=== PATIENT | female | born 1935 | race African-American/Black ===

== ENCOUNTER 2019-02-27 08:19 | Day surgery (SDC) | payer OTHER, MEDICARE ==
[2019-02-24 12:21] VITALS: BMI 24.6
[2019-02-27 11:19] VITALS: TEMP 97.7
[2019-02-27 12:35] VITALS: BP 132/89; PULSE 69
--- NOTE | 2019-02-28 10:59 | PATH ---
Surgical Pathology Report Patient Name: [facility]. Rec. #: [id number] /Age/Gender: 1935 (Age: 83) / F Account: [id number] Location: U-ENDOSCOPY Taken: 02/27/2019 Received: 02/27/2019 Reported: 02/28/2019 Physicians: Kasia Mackenzie M.D. Specimen(s) Received A: DUODENUM, SECOND PORTION AND BULB B: ANTRUM C: DESCENDING COLON POLYP D: RIGHT COLON POLYP Clinical History Weight loss, loss of appetite Postoperative diagnosis: Atrophic gastritis, hiatal hernia, GERD, colon polyps, diverticulosis Final Diagnosis A. DUODENUM, SECOND PORTION AND BULB, BIOPSY: DUODENAL MUCOSA WITH MILD TO MODERATE CHRONIC DUODENITIS. B. STOMACH, ANTRUM, BIOPSY: GASTRIC ANTRAL MUCOSA WITH MILD CHRONIC GASTRITIS. IMMUNOHISTOCHEMICAL STAIN FOR H. PYLORI IS NEGATIVE. C. DESCENDING COLON, POLYP, BIOPSY: TUBULAR ADENOMA. D. COLON POLYPS, RIGHT, POLYPECTOMY AND BIOPSY: TUBULAR ADENOMA(S). Electronically Signed Eleni Freed M.D. Gross Description A. Received in formalin, labeled "second portion and bulb of duodenum" are 4 hadley, irregular portions of soft tissue ranging from 0.1-0.4 cm. in greatest dimension. The specimens are submitted in toto in one cassette. B. Received in formalin, labeled "antrum biopsy" are 4 hadley, irregular portions of soft tissue ranging from 0.2-0.5 cm. in greatest dimension. The specimens are submitted in toto in one cassette. C. Received in formalin, labeled "descending colon polyp" is a hadley, irregular portion of soft tissue measuring 0.5 cm. in greatest dimension. The specimen is submitted in toto in one cassette. D. Received in formalin, labeled "right colon polyps" are 5 hadley, irregular portions of soft tissue ranging from 0.1-0.5 cm. in greatest dimension. The specimens are submitted in toto in one cassette. 02/27/201902/27/2019
== END 2019-02-27 12:28 | disposition home or self-care (01) ==
LOC: JASU-ENDO 08:19
PROVIDERS: ATTEND Internal Medicine Gastroenterology
PROC: 0DBM8ZX Excision of Descending Colon, Via Natural or Artificial Opening Endoscopic, Diagnostic (ICD-10-PCS; 2019-02-27)
PROC: 0DBK8ZX Excision of Ascending Colon, Via Natural or Artificial Opening Endoscopic, Diagnostic (ICD-10-PCS; 2019-02-27)
PROC: 0DB98ZX Excision of Duodenum, Via Natural or Artificial Opening Endoscopic, Diagnostic (ICD-10-PCS; 2019-02-27)
PROC: 0DB68ZX Excision of Stomach, Via Natural or Artificial Opening Endoscopic, Diagnostic (ICD-10-PCS; 2019-02-27)
PROC: 0DBK8ZX Excision of Ascending Colon, Via Natural or Artificial Opening Endoscopic, Diagnostic (ICD-10-PCS; principal; 2019-02-27 10:00)
DX: Z12.11 Encounter for screening for malignant neoplasm of colon (principal); R63.4 Abnormal weight loss; D12.2 Benign neoplasm of ascending colon; D12.4 Benign neoplasm of descending colon; K57.30 Diverticulosis of large intestine without perforation or abscess without bleeding; K64.8 Other hemorrhoids; K29.80 Duodenitis without bleeding; K29.50 Unspecified chronic gastritis without bleeding; K44.9 Diaphragmatic hernia without obstruction or gangrene; K21.9 Gastro-esophageal reflux disease without esophagitis; I10 Essential (primary) hypertension; E78.5 Hyperlipidemia, unspecified; E04.1 Nontoxic single thyroid nodule
CPT/HCPCS: 88305-TC; 88342-TC

== ENCOUNTER 2021-10-17 08:01 | Observation (INO) | payer OTHER ==
[2021-10-17] MEDS ORDERED: HYDROCORTISONE SOD SUCCINATE 100 MG/2 ML VIAL IVPUSH ONE (08:20)
[2021-10-17] MEDS ORDERED: FAMOTIDINE 20 MG/50 ML IVPB 20 MG/50 ML MG IVPB ONE ×2 (08:25→08:27)
[2021-10-17] MEDS ORDERED: ALBUTEROL SO4 2.5/IPRATROPIUM 0.5 INH SOL 3 ML VIAL.NEB. NEB ONE (08:27)
[2021-10-17] MEDS ORDERED: RAPID SEQUENCE INTUBATION KIT NR ONE (08:31)
[2021-10-17] MEDS ORDERED: TRANEXAMIC ACID 1000 MG/10 ML VIAL ONE ×2 (08:32→08:49)
[2021-10-17] MEDS ORDERED: TRANEXAMIC ACID 1000 MG/10 ML VIAL IVPUSH ONE ×3 (08:41→08:46)
[2021-10-17 09:00] LABS: BASO % 0.3 % (0-2.0); EOS % 3.6 % (0-4.5); HEMATOCRIT 41.4 % (32.4-45.2); HEMOGLOBIN 13.6 GM/dL (10.7-15.3); LYMPH % 45.2 % (8-40); MCH 30.5 pg (25.7-33.7); MCHC 32.9 g/dl (32.0-36.0); MEAN CELL VOLUME 92.7 fl (80-96); MEAN PLT VOLUME 7.8 fl (7.5-11.1); MONO % 7.7 % (3.8-10.2); NEUT % 43.2 % (42.8-82.8); PLATELET COUNT 276 10^3/uL (134-434); RBC 4.46 M/mm3 (3.60-5.2); RDW 13.3 % (11.6-15.6); WHITE BLOOD COUNT 7.9 K/mm3 (4.0-10.0)
[2021-10-17 09:15] LABS: ACTIVATED PTT 33.1 SECONDS (25.2-36.5); INR 0.99 (0.83-1.09); PROTHROMBIN TIME (PATIENT) 11.4 SEC (9.7-13.0)
[2021-10-17 09:25] LABS: ALBUMIN 4.2 g/dl (3.4-5.0); CALCIUM 9.8 mg/dL (8.5-10.1)
[2021-10-17 09:28] LABS: CREATININE 1.1 mg/dL (0.55-1.3)
[2021-10-17 09:30] LABS: BILIRUBIN,TOTAL 0.8 mg/dL (0.2-1); TOT PROT 8.2 g/dl (6.4-8.2)
[2021-10-17] MEDS ORDERED: MAG HYDROX/AL HYDROX/SIMETH 30 ML UNIT-DOSE CUP PO PRN (14:14)
[2021-10-17] MEDS ORDERED: PANTOPRAZOLE 40 MG TABLET PO SCH (14:30)
[2021-10-17] MEDS: VERAPAMIL HCL 240 MG E.R. TABLET PO SCH (15:41)
[2021-10-17] MEDS: HEPARIN NA (PORCINE) 5,000 UNITS/ML 1ML VIAL SQ SCH (21:46)
[2021-10-17] MEDS: ATORVASTATIN CA 20 MG TABLET (FP) PO SCH (21:46)
[2021-10-17 23:42] VITALS: BMI 24.8
[2021-10-18] MEDS: PANTOPRAZOLE 40 MG TABLET PO SCH (09:17)
[2021-10-18] MEDS: HEPARIN NA (PORCINE) 5,000 UNITS/ML 1ML VIAL SQ SCH ×2 (09:17→22:09)
[2021-10-18] MEDS ORDERED: DEXAMETHASONE SOD PHOSPHATE 10 MG/1 ML VIAL IVPUSH ONE (12:15)
[2021-10-18] MEDS: VERAPAMIL HCL 240 MG E.R. TABLET PO SCH (12:28)
[2021-10-18 18:39] VITALS: RESP 18
[2021-10-18] MEDS: ATORVASTATIN CA 20 MG TABLET (FP) PO SCH (22:09)
[2021-10-19 06:20] VITALS: BP 153/85; PULSE 64; TEMP 98.3
[2021-10-19] MEDS: VERAPAMIL HCL 240 MG E.R. TABLET PO SCH (09:58)
[2021-10-19] MEDS: HEPARIN NA (PORCINE) 5,000 UNITS/ML 1ML VIAL SQ SCH (09:58)
[2021-10-19] MEDS: PANTOPRAZOLE 40 MG TABLET PO SCH (09:58)
== END 2021-10-19 14:10 | disposition home or self-care (01) ==
LOC: JER 08:01 → INTOOBSV 08:57 → UNDOADMOB 08:57 → JERBED 08:57 → J7W 20:32
PROVIDERS: ADMIT Internal Medicine; ATTEND Internal Medicine
PROC: 3E023GC Introduction of Other Therapeutic Substance into Muscle, Percutaneous Approach (ICD-10-PCS; principal; 2021-10-17)
PROC: 3E033GC Introduction of Other Therapeutic Substance into Peripheral Vein, Percutaneous Approach (ICD-10-PCS; 2021-10-17)
DX: T78.3XXA Angioneurotic edema, initial encounter (principal); T46.4X5A Adverse effect of angiotensin-converting-enzyme inhibitors, initial encounter; Y92.9 Unspecified place or not applicable; F03.90 Unspecified dementia, unspecified severity, without behavioral disturbance, psychotic disturbance, mood disturbance, and anxiety; I10 Essential (primary) hypertension; E78.5 Hyperlipidemia, unspecified; E01.0 Iodine-deficiency related diffuse (endemic) goiter; Z88.8 Allergy status to other drugs, medicaments and biological substances
CPT/HCPCS: 0241U-QW; 36415; 36430; 71045-TC-FY; 80053; 85025; 85610; 85730; 86850; 86900; 86901; 93005; 93010; 96365; 96372; 96375; 96376; 99291; G0378; J1100; J1644; P9017

== ENCOUNTER 2022-04-23 04:33 | Day surgery (SDC) | payer OTHER ==
[2022-04-23 08:29] VITALS: BMI 24.9
[2022-04-23 11:38] VITALS: BP 145/67; PULSE 72; RESP 16; TEMP 97.8
== END 2022-04-23 11:16 | disposition home or self-care (01) ==
LOC: JASU-ENDO 04:33
PROVIDERS: ATTEND Internal Medicine Gastroenterology
PROC: 0DBN8ZX Excision of Sigmoid Colon, Via Natural or Artificial Opening Endoscopic, Diagnostic (ICD-10-PCS; principal; 2022-04-23 09:00)
DX: Z12.11 Encounter for screening for malignant neoplasm of colon (principal); D12.5 Benign neoplasm of sigmoid colon; K57.30 Diverticulosis of large intestine without perforation or abscess without bleeding; K64.8 Other hemorrhoids; Z86.010 Personal history of colon polyps
CPT/HCPCS: 88305-TC